=== PATIENT | male | born 1980 | race African-American/Black ===

== ENCOUNTER 2017-01-31 00:16 | Emergency (ER) | payer OTHER ==
[~2017-01-31] VITALS: Ht 177.8 cm; Wt 128.8 kg
[2017-01-31 00:43] VITALS: BP 118/58
[2017-01-31] MEDS ORDERED: ONDANSETRON ODT 4 MG TAB.RAPDIS. PO ONE (01:30)
[2017-01-31] MEDS ORDERED: TRAMADOL 50 MG TABLET. PO ONE (01:30)
[2017-01-31 01:33] LABS: BILIRUBIN,URINE NEGATIVE (NEG); GLUCOSE,URINE NEGATIVE (NEG); NITRITE,URINE NEGATIVE (NEG); PH,URINE 6.5; PROTEIN,URINE NEGATIVE (NEG-TRACE)
--- NOTE | 2017-01-31 01:39 | RAD ---
INDICATION: Abdomen pain. COMPARISON: None TECHNIQUE: Axial CT images obtained through the abdomen and pelvis. Intravenous contrast was not Utilized. One or more of the following individualized dose reduction techniques were utilized for this examination: 1. Automated exposure control; 2. Adjustment of the mA and/or kV according to patient size; 3. Use of iterative reconstruction technique. FINDINGS: Abdominal aorta not aneurysmal. No intrahepatic bile duct dilation. No peripancreatic edema. Spleen unremarkable. No hydronephrosis. No definite evidence of small bowel obstruction. Bladder unremarkable within limits of CT. there is some scattered enlarged lymph nodes seen throughout the abdomen pelvis. For example within the left groin measuring up to 14 millimeter short axis. Appendix does not appear inflamed. Small fat containing umbilical hernia. There are some degenerative changes the spine with small amount of air seen within facet joints at L4-5. IMPRESSION: No evidence of bowel obstruction, appendicitis or hydronephrosis. There are some scattered prominent lymph nodes identified including lymphadenopathy within the left greater than right groin. This is of unknown etiology could be reactive in nature but neoplastic causes are not excluded. Follow-up could be obtained in a few months to ensure no growth if this is of unknown causes clinically. Electronically signed by: Pradeep Colindres (Jan 31, 2017 01:37:24)
[2017-01-31 01:44] LABS: BACTERIA,URINE 0 /HPF (0-FEW); RBC,URINE OCC /HPF (0-2); SQUAMOUS EPITHELIAL CELL,UR MOD /LPF
[2017-01-31] MEDS ORDERED: IBUP-1007 PO (02:10)
--- NOTE | 2017-01-31 02:10 | PHYS DOC ---
Past Medical History Past Medical History: Hypertension Past Surgical History: No Surgical History Alcohol Use: None Drug Use: None Adult General Chief Complaint Chief Complaint: MULTIPLE COMPLAINTS HPI HPI Patient is a 36 year old gentleman with a history significant for hypertension , denies any diabetes liver longer kidney problems. No gallbladder problems appendix is still intact. Patient does smoke no alcohol or drugs. Patient is allergic to any medications. Patient presents here today complaining of right flank pain as well as rash underneath both breasts and a headache. Patient denies any fevers shakes chills. Patient reports she's had some blood in his urine. Patient reports she's had nausea vomiting and some diarrhea. Patient denies any shortness of breath or chest pain. Patient has any cough cold runny nose. Patient reports she has pain to his right lower back region which increases with movement. Patient denies any trauma. Patient's physical exam is unremarkable the ER. Patient is resting comfortably in the ED and slept throughout most of his ER visit. Patient is easily arousable and is alert awake and oriented 3 when talking to him. She does have tenderness on palpation to his right flank region. Patient has pain with rotation and standing up and sitting around. Patient's abdomen is soft nontender no rebound or guarding. Patient's rash is consistent with a yeast dermatosis underneath both breasts. Patient's fundi are unremarkable. A/P #1 lower back pain. This appears to be mechanical in nature. Patient's CT scan of his abdomen and pelvis does not reveal any stones. Patient be discharged home with ibuprofen and to follow-up with the primary care physician for further evaluation. #2 headache: Patient is stable. Patient has been resting comfortably in bed since his stay here. Patient's funduscopic exam is normal. Patient's blood pressure is unremarkable and the likely cause. Rash likely secondary to yeast dermatosis. Patient was instructed to purchase Lotrimin ointment and to keep the area underneath his breasts as dry as possible. Review of Systems Review of Systems Constitutional: Denies fever or chills [] Eyes: Denies change in visual acuity, redness, or eye pain [] HENT: Denies nasal congestion or sore throat [] All other review systems are negative except as documented in the history of present illness portion. Current Medications Current Medications Current Medications Medications (Trade) Dose Ordered Sig/Satcie Start Time Stop Time Status Last Admin Dose Admin Ondansetron HCl (Zofran Odt) 4 mg 1X ONCE 01/31/17 01:30 01/31/17 01:31 DC 01/31/17 01:30 4 MG Tramadol HCl (Ultram) 50 mg 1X ONCE 01/31/17 01:30 01/31/17 01:31 DC 01/31/17 01:30 50 MG Allergies Allergies Allergies Coded Allergies Type Severity Reaction Last Updated Verified bee venom protein (honey bee) Allergy Intermediate 01/31/17 Yes onion Allergy Intermediate 01/31/17 Yes tomato Allergy Intermediate 01/31/17 Yes Physical Exam Physical Exam Constitutional: Well developed, well nourished, no acute distress, non-toxic appearance. [] HENT: Normocephalic, atraumatic, bilateral external ears normal, oropharynx moist, no oral exudates, nose normal. [] Eyes: PERRLA, EOMI, conjunctiva normal, no discharge. [] Neck: Normal range of motion, no tenderness, supple, no stridor. [] Cardiovascular:Heart rate regular rhythm, no murmur [] Lungs & Thorax: Bilateral breath sounds clear to auscultation [] Abdomen: Bowel sounds normal, soft, no tenderness, no masses, no pulsatile masses. [] Skin: Warm, dry, no erythema, no rash. [] Back: No tenderness, no CVA tenderness. [] Extremities: No tenderness, no cyanosis, no clubbing, ROM intact, no edema. [] Neurologic: Alert and oriented X 3, normal motor function, normal sensory function, no focal deficits noted. [] Psychologic: Affect normal, judgement normal, mood normal. [] Current Patient Data Vital Signs Vital Signs Date Time Temp Pulse Resp B/P Pulse Ox O2 Delivery O2 Flow Rate FiO2 01/31/17 00:43 97.7 72 18 118/58 98 Room Air 97.7 Lab Values Laboratory Tests Test 01/31/17 01:24 Urine Collection Type Unknown Urine Color Yellow Urine Clarity Clear Urine pH 6.5 Urine Specific Rick[place]all >=1.030 Urine Protein Negativemg/dL (NEG-TRACE) Urine Glucose (UA) Negativemg/dL (NEG) Urine Ketones (Stick) Negativemg/dL (NEG) Urine Blood Negative (NEG) Urine Nitrite Negative (NEG) Urine Bilirubin Negative (NEG) Urine Urobilinogen Dipstick 1.0mg/dL (0.2 mg/dL) Urine Leukocyte Esterase Small (NEG) Urine RBC Occ/HPF (0-2) Urine WBC 1-4/HPF (0-4) Urine Squamous Epithelial Cells Mod/LPF Urine Bacteria 0/HPF (0-FEW) Urine Mucus Mod/LPF EKG EKG [] Radiology/Procedures Radiology/Procedures [] Course & Med Decision Making Course & Med Decision Making Pertinent Labs and Imaging studies reviewed. (See chart for details) [] Dragon Disclaimer Dragon Disclaimer This electronic medical record was generated, in whole or in part, using a voice recognition dictation system. Departure Departure Impression: Primary Impression: Low back strain Additional Impressions: Headache Yeast dermatitis Disposition: HOME, SELF-CARE Condition: STABLE Referrals: NO PCP (PCP) Patient Instructions: Low Back Strain with Rehab[facility], Yeast Infection of the Skin, [id number] Scripts Ibuprofen 600 Mg [id number] Mg PO PRN Q6HRS PRN PAIN #20 TAB Prov:SHEFALI VERA MD 01/31/17 Problem Qualifiers SHEFALI VERA MD Jan 31, 2017 02:10
== END 2017-01-31 02:17 | disposition home or self-care (01) ==
LOC: ER 00:16
DX: S39.012A Strain of muscle, fascia and tendon of lower back, initial encounter (principal); R51 Headache; B37.89 Other sites of candidiasis; I10 Essential (primary) hypertension; Z91.030 Bee allergy status; Z91.018 Allergy to other foods; F17.200 Nicotine dependence, unspecified, uncomplicated; X58.XXXA Exposure to other specified factors, initial encounter; Y93.89 Activity, other specified; Y99.8 Other external cause status; Y92.89 Other specified places as the place of occurrence of the external cause
CPT/HCPCS: 74176; 81001; 87086; 99285; Q0162